=== PATIENT | female | born 1970 | race Two or more races ===

== ENCOUNTER 2020-03-24 14:34 | Emergency (ER) | payer MEDICAID, OTHER ==
[~2020-03-24] VITALS: Ht 167.6 cm; Wt 149.7 kg
[2020-03-24 14:47] VITALS: BP 156/91
== END 2020-03-24 16:55 | disposition home or self-care (01) ==
LOC: EDBD 14:34 → ER 14:34
DX: J06.9 Acute upper respiratory infection, unspecified (principal); R50.9 Fever, unspecified; I10 Essential (primary) hypertension; F17.210 Nicotine dependence, cigarettes, uncomplicated; Z20.828 Contact with and (suspected) exposure to other viral communicable diseases; Z87.11 Personal history of peptic ulcer disease
CPT/HCPCS: 36415; 71045; 87426